=== PATIENT | male | born 1955 | race Asian ===

== ENCOUNTER 2018-08-31 18:39 | Emergency (ER) | payer OTHER ==
[~2018-08-31] VITALS: Ht 160 cm; Wt 68.0 kg
[2018-08-31 19:05] VITALS: BP 137/96
[2018-08-31] MEDS ORDERED: NKM (19:09)
[2018-08-31 21:01] VITALS: BP 127/85
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
[2018-08-31] MEDS ORDERED: IBUPROFEN800 MG ORAL (21:46)
[2018-08-31 22:04] VITALS: BP 127/85
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
== END 2018-08-31 22:04 | disposition home or self-care (01) ==
LOC: EMR 19:35
DX: S83.92XA Sprain of unspecified site of left knee, initial encounter (principal); S00.83XA Contusion of other part of head, initial encounter; S40.811A Abrasion of right upper arm, initial encounter; Y08.02XA Assault by strike by baseball bat, initial encounter; Y04.8XXA Assault by other bodily force, initial encounter; Y92.512 Supermarket, store or market as the place of occurrence of the external cause
CPT/HCPCS: 70450; 99284